=== PATIENT | female | born 2005 | race Two or more races ===

== ENCOUNTER 2025-08-16 13:46 | Outpatient (CLI) | payer OTHER | END 2025-08-16 14:08 | disposition home or self-care (01) | LOC: PRENATAL 13:46 | PROVIDERS: ATTEND Obstetrics & Gynecology Maternal & Fetal Medicine | DX: O44.00 Complete placenta previa NOS or without hemorrhage, unspecified trimester (principal); Z36.0 Encounter for antenatal screening for chromosomal anomalies; Z3A.22 22 weeks gestation of pregnancy ==